=== PATIENT | female | born 1935 | race Caucasian/White ===

== ENCOUNTER 2018-04-08 09:56 | Outpatient (CLI) | payer MEDICARE | END 2018-04-08 09:57 | disposition home or self-care (01) | LOC: BICMAMMO 09:56 | PROVIDERS: ATTEND Internal Medicine Hematology & Oncology | DX: M85.80 Other specified disorders of bone density and structure, unspecified site (principal); C50.919 Malignant neoplasm of unspecified site of unspecified female breast | CPT/HCPCS: 77080 ==

== ENCOUNTER 2019-07-01 12:29 | Outpatient (CLI) | payer MEDICARE, BC ==
--- NOTE | 2019-07-01 13:47 | BD ---
EXAM: DEXA bone density examination HISTORY: 83-year-old postmenopausal female for screening COMPARISON: None FINDINGS: Left femoral neck--bone mineral density0.610; T score -2.2 Total proximal left femur--bone mineral density 0.815; T score -1.0 Right femoral neck--bone mineral density0.609; T score -2.2 Total proximal right femur--bone mineral density 0.885; T score -0.5 IMPRESSION: Osteopenia
== END 2019-07-01 12:30 | disposition home or self-care (01) ==
LOC: BICMAMMO 12:29
PROVIDERS: ATTEND Internal Medicine Hematology & Oncology
DX: M85.89 Other specified disorders of bone density and structure, multiple sites (principal); C50.919 Malignant neoplasm of unspecified site of unspecified female breast
CPT/HCPCS: 77080

== ENCOUNTER 2021-08-10 14:40 | Outpatient (CLI) | payer MEDICARE | END 2021-08-10 14:41 | disposition home or self-care (01) | LOC: BICMAMMO 14:40 | PROVIDERS: ATTEND Internal Medicine Hematology & Oncology | DX: M85.851 Other specified disorders of bone density and structure, right thigh (principal); M85.852 Other specified disorders of bone density and structure, left thigh | CPT/HCPCS: 77080 ==

== ENCOUNTER 2023-08-30 11:09 | Inpatient (IN) | payer MEDICARE ==
[2023-08-30 11:31] LABS: #Basophils 0.1 thou/uL (0.0-0.2); #Eosinphils 0.2 thou/uL (0.0-0.7); #Monocytes 1.3 thou/uL (0.11-0.59); #Neutrophils 12.3 thou/uL (1.40-6.50); %Basophils 0.5 % (0.0-1.0); %Eosinophils 1.2 % (0.0-10.0); %Lymphocytes 14.7 % (21.0-51.0); %Monocytes 7.9 % (0.0-10.0); %Neutrophils 75.1 % (42.0-75.0); Hematocrit 37.2 % (36.0-47.0); Hemoglobin 11.3 g/dL (12.0-16.0); Mean Corpuscular HGB CONC 30.4 g/dL (32.0-36.0); Mean Corpuscular Hemoglobin 27.4 pg (27.0-31.0); Mean Corpuscular Volume 90.1 fl (78.0-98.0); Mean Platelet Volume 9.5 fL (7.4-10.4); Platelet Count 389 10x3/uL (130-400); RBC Distribution Width 15.4 % (11.5-14.5); Red Blood Cell (RBC) Count 4.13 mill/uL (4.20-5.40); White Blood Cell (WBC) Count 16.3 10x3/uL (4.8-10.8)
[2023-08-30 11:54] LABS: ALT (SGPT) 7 U/L (8-55); AST (SGOT) 12 U/L (5-34); Albumin 3.9 g/dL (3.4-4.8); Alkaline Phosphatase 70 U/L (40-110); Anion Gap 17 mmol/L (10-20); BUN (Urea Nitrogen) 27 mg/dL (9.8-20.1); Bilirubin, Total 0.2 mg/dL (0.2-1.2); Calc. Creatinine Clearance 0 mL/min (70-130); Calcium 8.6 mg/dL (7.8-10.44); Carbon Dioxide 16 mmol/L (23-31); Chloride 105 mmol/L (98-107); Estimated GFR 14; Globulin 2.5 g/dL (2.4-3.5); Glucose 95 mg/dL (83-110); Lipase 49 U/L (8-78); Potassium 3.8 mmol/L (3.5-5.1); Protein, Total 6.4 g/dL (5.8-8.1); Sodium 134 mmol/L (136-145)
[2023-08-30 12:23] LABS: Bacteria/HPF 2+ HPF (None Seen); Bilirubin Negative (Negative); Blood, Urine Negative (Negative); CAUTI Indications for Culture Alt mental st,lethar; Clarity Clear (Clear); Glucose, Urine (Dipstick) Normal (Negative); Ketone, Urine Negative (Negative); Leukocyte 25 Leu/uL (Negative); Nitrite Negative (Negative); Protein, Urine (Dipstick) 50 mg/dL (Neg-Trace); RBC/HPF 0-3 HPF (0-3); Specific Gravity, Urine 1.019 (1.002-1.036); Squamous Epithelial None Seen HPF (0-3); Urobilinogen Normal mg/dL (Less than 2); WBC/HPF 0-3 HPF (0-3); pH, Urine 5.5 (5.0-9.0)
[2023-08-30 12:25] LABS: Amphetamine Not Detected (NotDetected); Barbiturates Screen Not Detected (NotDetected); Benzodiazepine Screen Not Detected (NotDetected); Cocaine Metabolite Screen Not Detected (NotDetected); Methadone Not Detected (NotDetected); Methamphetamine Not Detected (NotDetected); Opiate Screen Detected (NotDetected); Oxycodone Screen Not Detected (NotDetected); Phencyclidine (PCP) Not Detected (NotDetected); THC/Cannabinoid Screen Not Detected (NotDetected); Tricyclic Screen Not Detected (NotDetected); Urine Culture Reflex No No
[2023-08-30] MEDS ORDERED: Acetaminophen 650 MG Suppository ONE (12:35)
[2023-08-30] MEDS ORDERED: Cefepime 2 GM VIAL ONE (12:49)
[2023-08-30] MEDS ORDERED: Sodium Chloride 0.9% 100 ML ONE (12:49)
[2023-08-30 12:51] LABS: Acetaminophen Less than 10 mcg/mL (10.0-30.0); Alcohol Less than 10.0 mg/dL (Less than 10); Magnesium 1.8 mg/dL (1.6-2.6); Salicylate Less than 8.0 mg/dL (15.0-30.0)
[2023-08-30 12:55] LABS: PTT 23.4 sec (22.9-36.1)
[2023-08-30 12:55] LABS: Troponin I 0.028 ng/mL (< 0.028)
[2023-08-30 12:56] LABS: INR-International Normal Ratio 1.7; Prothrombin Time 20.8 sec (12.0-14.7)
[2023-08-30] MEDS ORDERED: Vancomycin (BATCH) 2 GM in Premix 1 BAG IVPB SCH (13:30)
[2023-08-30] MEDS ORDERED: Vancomycin Dose by Levels Sliding Scale (Wt 71-99) FS SCH (14:00)
[2023-08-30] MEDS ORDERED: Dextrose 5% in Water 1,000 ML IV PRN (15:01)
[2023-08-30] MEDS ORDERED: Ondansetron PF 4 MG/2 ML Vial IVP PRN (15:01)
[2023-08-30] MEDS ORDERED: HumaLOG 300 UNITS/3 ML VIAL SC PRN (15:01)
[2023-08-30] MEDS ORDERED: Acetaminophen 650 MG Suppository PR PRN (15:01)
[2023-08-30] MEDS ORDERED: Glucagon 1 MG/ML KIT IM PRN (15:01)
[2023-08-30] MEDS ORDERED: Dextrose 50% Abboject 50 ML SYRINGE SLOW IVP PRN (15:01)
[2023-08-30] MEDS ORDERED: hydrALAZINE 20 MG/ML VIAL SLOW IVP PRN (15:04)
[2023-08-30 15:11] LABS: Actual Bicarbonate (HCO3a) 19.2 mEq/L (22-28); Analyzer IN Cardio ER; Base Excess (BEa) -7.1 mEq/L (-2.0 to +3.0); CO2 Tension 41.9 mmHg (35.0-45.0); Calcium, Ionized (arterial) 1.12 mmol/L (1.12-1.30); Carboxyhemoglobin (COHb) 1.3 gm% (0.0-3.0); Hematocrit-ABG 31 % (36.0-47.0); Hemoglobin (Hb) 10.4 g/dL (12.0-16.0); Potassium - ABG Lab 4.01 mmol/L (3.70-5.30); pH, Arterial 7.279 (7.35-7.45)
[2023-08-30 15:15] LABS: ALV-art Gradient 36.355 mmHg (0-20); Puncture Site RBA
[2023-08-30 15:16] LABS: Lactic Acid 2.5 mmol/L (0.5-2.2)
[2023-08-30 15:19] LABS: Troponin I 0.067 ng/mL (< 0.028)
[2023-08-30] MEDS ORDERED: Sodium Chloride 0.9% 500 ML IV SCH (15:30)
[2023-08-30] MEDS ORDERED: Aspirin 300 MG Suppository PR SCH (15:45)
[2023-08-30 17:25] VITALS: BMI 32.5
[2023-08-30 17:35] LABS: SARS-CoV-2 NAA Rapid Test Not Detected (NotDetected)
[2023-08-30 17:40] LABS: Troponin I 0.133 ng/mL (< 0.028)
[2023-08-30] MEDS ORDERED: FLU VACC QS2023(65UP)/MF59C/PF 60 MCG/0.5 ML SYRINGE IM ONE (17:45)
[2023-08-30] MEDS: Sodium Bicarbonate 150 MEQ in Dextrose 5% in Water 1,000 ML IV SCH (20:44)
[2023-08-30] MEDS: Heparin 5,000 UNITS/ML VIAL SC SCH (20:49)
[2023-08-31 04:58] LABS: Anion Gap 17 mmol/L (10-20); BUN (Urea Nitrogen) 27 mg/dL (9.8-20.1); Calc. Creatinine Clearance 16 mL/min (70-130); Calcium 8.4 mg/dL (7.8-10.44); Carbon Dioxide 19 mmol/L (23-31); Cardiac Risk 2.9 (Less than 4.5); Chloride 105 mmol/L (98-107); Cholesterol 79 mg/dl (< 200 Desired); Estimated GFR 15; Glucose 128 mg/dL (83-110); HDL Cholesterol 27 mg/dL (>60 Neg Risk); LDL Cholesterol, Calculated 14 mg/dL; Potassium 3.8 mmol/L (3.5-5.1); Sodium 137 mmol/L (136-145); Triglycerides 189 mg/dL (Less than 150)
[2023-08-31 07:37] LABS: #Basophils 0.1 thou/uL (0.0-0.2); #Monocytes 0.8 thou/uL (0.11-0.59); #Neutrophils 8.8 thou/uL (1.40-6.50); %Basophils 0.6 % (0.0-1.0); %Eosinophils 7.8 % (0.0-10.0); %Lymphocytes 14.2 % (21.0-51.0); %Monocytes 6.5 % (0.0-10.0); %Neutrophils 70.5 % (42.0-75.0); Hematocrit 36.9 % (36.0-47.0); Hemoglobin 11.5 g/dL (12.0-16.0); Mean Corpuscular HGB CONC 31.2 g/dL (32.0-36.0); Mean Corpuscular Hemoglobin 27.2 pg (27.0-31.0); Platelet Count 371 10x3/uL (130-400); RBC Distribution Width 15.3 % (11.5-14.5); Red Blood Cell (RBC) Count 4.23 mill/uL (4.20-5.40); White Blood Cell (WBC) Count 12.4 10x3/uL (4.8-10.8)
[2023-08-31 07:49] LABS: Mean Corpuscular Volume 87.2 fl (78.0-98.0)
[2023-08-31] MEDS: Sodium Bicarbonate 150 MEQ in Dextrose 5% in Water 1,000 ML IV SCH ×3 (08:45→19:49)
[2023-08-31] MEDS: Famotidine/PF 20 mg/2ml Vial SLOW IVP SCH (08:52)
[2023-08-31] MEDS: Heparin 5,000 UNITS/ML VIAL SC SCH ×3 (08:53→20:46)
[2023-08-31] MEDS: Aspirin 300 MG Suppository PR SCH (08:53)
[2023-08-31] MEDS: Cefepime 1 GM in Sodium Chloride 0.9% 100 ML IVPB SCH (13:21)
[2023-08-31 15:16] LABS: Vancomycin, Random 28.6 ug/mL (See Comment)
[2023-08-31] MEDS: HumaLOG 300 UNITS/3 ML VIAL SC PRN (17:10)
[2023-09-01] MEDS ORDERED: cloNIDine 0.1 MG TAB PO SCH (04:45)
[2023-09-01 05:06] LABS: #Basophils 0.1 thou/uL (0.0-0.2); #Monocytes 1.1 thou/uL (0.11-0.59); #Neutrophils 7.2 thou/uL (1.40-6.50); %Basophils 0.8 % (0.0-1.0); %Eosinophils 8.9 % (0.0-10.0); %Lymphocytes 18.7 % (21.0-51.0); %Monocytes 9.7 % (0.0-10.0); %Neutrophils 61.6 % (42.0-75.0); Hematocrit 34.4 % (36.0-47.0); Hemoglobin 10.9 g/dL (12.0-16.0); Mean Corpuscular HGB CONC 31.7 g/dL (32.0-36.0); Mean Corpuscular Hemoglobin 26.3 pg (27.0-31.0); Mean Platelet Volume 9.7 fL (7.4-10.4); Platelet Count 379 10x3/uL (130-400); RBC Distribution Width 15.1 % (11.5-14.5); Red Blood Cell (RBC) Count 4.15 mill/uL (4.20-5.40); White Blood Cell (WBC) Count 11.6 10x3/uL (4.8-10.8)
[2023-09-01 05:28] LABS: Mean Corpuscular Volume 82.9 fl (78.0-98.0)
[2023-09-01 05:30] LABS: Anion Gap 17 mmol/L (10-20); BUN (Urea Nitrogen) 19 mg/dL (9.8-20.1); Calc. Creatinine Clearance 23 mL/min (70-130); Calcium 8.8 mg/dL (7.8-10.44); Carbon Dioxide 34 mmol/L (23-31); Chloride 95 mmol/L (98-107); Estimated GFR 22; Glucose 117 mg/dL (83-110); Potassium 2.9 mmol/L (3.5-5.1); Sodium 143 mmol/L (136-145)
[2023-09-01] MEDS ORDERED: Potassium Chloride 20 MEQ in Premix 1 BAG IVPB SCH (08:57)
[2023-09-01] MEDS ORDERED: Potassium Chloride 20 MEQ TAB PO SCH (08:57)
[2023-09-01] MEDS ORDERED: Amlodipine 10 MG TAB PO SCH (09:00)
[2023-09-01] MEDS ORDERED: Metoprolol Tartrate 25 MG TAB PO SCH (09:15)
[2023-09-01] MEDS: Heparin 5,000 UNITS/ML VIAL SC SCH ×3 (09:42→21:28)
[2023-09-01 10:09] LABS: Albumin 3.8 g/dL (3.4-4.8); CK (CPK) 62 U/L (29-168); Phosphorus 2.7 mg/dL (2.3-4.7)
[2023-09-01 10:10] LABS: Magnesium 1.5 mg/dL (1.6-2.6)
[2023-09-01] MEDS ORDERED: Magnesium 2 GM/50 ML(in water) 2 GM in Premix 1 BAG IVPB SCH (11:00)
[2023-09-01] MEDS: Famotidine/PF 20 mg/2ml Vial SLOW IVP SCH (11:32)
[2023-09-01] MEDS: Amlodipine 5 MG TAB PO SCH (11:32)
[2023-09-01] MEDS: Aspirin 300 MG Suppository PR SCH (11:32)
[2023-09-01] MEDS: Sodium Chloride 0.9% 1,000 ML IV SCH ×3 (11:33→21:27)
[2023-09-01] MEDS: Cefepime 1 GM in Sodium Chloride 0.9% 100 ML IVPB SCH (15:57)
[2023-09-01] MEDS: Sodium Bicarbonate 150 MEQ in Dextrose 5% in Water 1,000 ML IV SCH (17:48)
[2023-09-01 20:37] LABS: Anion Gap 18 mmol/L (10-20); BUN (Urea Nitrogen) 18 mg/dL (9.8-20.1); Calc. Creatinine Clearance 24 mL/min (70-130); Calcium 9.1 mg/dL (7.8-10.44); Carbon Dioxide 28 mmol/L (23-31); Chloride 96 mmol/L (98-107); Estimated GFR 23; Glucose 165 mg/dL (83-110); Potassium 3.8 mmol/L (3.5-5.1); Sodium 138 mmol/L (136-145)
[2023-09-01] MEDS: Metoprolol Tartrate 25 MG TAB PO SCH (21:28)
[2023-09-02] MEDS: Sodium Chloride 0.9% 1,000 ML IV SCH ×3 (05:39→23:00)
[2023-09-02 07:23] LABS: Albumin 3.4 g/dL (3.4-4.8); Anion Gap 15 mmol/L (10-20); BUN (Urea Nitrogen) 15 mg/dL (9.8-20.1); BUN/Creatinine Ratio 9.26; Calc. Creatinine Clearance 30 mL/min (70-130); Calcium 8.4 mg/dL (7.8-10.44); Carbon Dioxide 27 mmol/L (23-31); Chloride 100 mmol/L (98-107); Estimated GFR 31; Glucose 115 mg/dL (83-110); Magnesium 1.3 mg/dL (1.6-2.6); Phosphorus 2.6 mg/dL (2.3-4.7); Potassium 3.1 mmol/L (3.5-5.1); Sodium 139 mmol/L (136-145)
[2023-09-02] MEDS: Famotidine/PF 20 mg/2ml Vial SLOW IVP SCH (08:31)
[2023-09-02] MEDS: Heparin 5,000 UNITS/ML VIAL SC SCH ×3 (08:31→20:36)
[2023-09-02] MEDS: Amlodipine 5 MG TAB PO SCH (08:31)
[2023-09-02] MEDS: Metoprolol Tartrate 25 MG TAB PO SCH ×2 (08:32→20:35)
[2023-09-02] MEDS: Aspirin 300 MG Suppository PR SCH (08:37)
[2023-09-02] MEDS ORDERED: Magnesium Sulfate In Water 4 GM in Premix 1 BAG IVPB SCH (12:30)
[2023-09-02] MEDS ORDERED: Amlodipine 5 MG TAB PO SCH (12:30)
[2023-09-02] MEDS ORDERED: Potassium Chloride 20 MEQ TAB PO SCH ×2 (12:30→15:00)
[2023-09-02] MEDS ORDERED: Polymyxin B Sulf/Trimethoprim 10 ML OPHTH DROPS R EYE SCH (13:00)
[2023-09-02] MEDS: cefTRIAXone\\ROCEPHIN 1 GM in Sodium Chloride 0.9% 100 ML IVPB SCH (13:06)
[2023-09-02] MEDS ORDERED: Cortisporin 1% Opth Oint 3.5 GM TUBE EA EYE SCH (16:00)
[2023-09-02] MEDS: Cortisporin 1% Opth Oint 3.5 GM TUBE R EYE SCH ×3 (16:05→23:45)
[2023-09-02] MEDS: metFORMIN 500 MG TAB PO SCH (16:05)
[2023-09-02] MEDS ORDERED: Lisinopril 2.5 MG TAB PO SCH (21:00)
[2023-09-03] MEDS: Cortisporin 1% Opth Oint 3.5 GM TUBE R EYE SCH ×6 (04:00→23:18)
[2023-09-03] MEDS ORDERED: Acetaminophen 325 MG TAB PO PRN (05:29)
[2023-09-03] MEDS ORDERED: Amlodipine 10 MG TAB PO SCH ×2 (05:45→09:00)
[2023-09-03] MEDS: Levothyroxine Sodium 25 MCG TAB PO SCH (06:05)
[2023-09-03] MEDS ORDERED: NIFEdipine XL 60 MG ER.TAB PO SCH ×2 (07:00→09:00)
[2023-09-03 07:51] LABS: #Basophils 0.1 thou/uL (0.0-0.2); #Eosinphils 0.4 thou/uL (0.0-0.7); #Monocytes 1.1 thou/uL (0.11-0.59); #Neutrophils 6.1 thou/uL (1.40-6.50); %Eosinophils 3.7 % (0.0-10.0); %Lymphocytes 22.2 % (21.0-51.0); %Monocytes 10.7 % (0.0-10.0); Hematocrit 35.3 % (36.0-47.0); Hemoglobin 11.1 g/dL (12.0-16.0); Mean Corpuscular HGB CONC 31.4 g/dL (32.0-36.0); Mean Corpuscular Hemoglobin 26.9 pg (27.0-31.0); Mean Corpuscular Volume 85.7 fl (78.0-98.0); Mean Platelet Volume 9.7 fL (7.4-10.4); Platelet Count 354 10x3/uL (130-400); RBC Distribution Width 15.1 % (11.5-14.5); Red Blood Cell (RBC) Count 4.12 mill/uL (4.20-5.40); White Blood Cell (WBC) Count 9.8 10x3/uL (4.8-10.8)
[2023-09-03] MEDS: Ferrous Sulfate 325 MG TAB PO SCH (08:13)
[2023-09-03] MEDS: metFORMIN 500 MG TAB PO SCH ×2 (08:13→17:33)
[2023-09-03] MEDS: Aspirin Chewable 81 MG TAB PO SCH (08:14)
[2023-09-03] MEDS: Atorvastatin Calcium 40 MG TAB PO SCH (08:14)
[2023-09-03] MEDS: Heparin 5,000 UNITS/ML VIAL SC SCH ×3 (08:14→20:30)
[2023-09-03] MEDS: Metoprolol Tartrate 25 MG TAB PO SCH ×2 (08:14→20:30)
[2023-09-03 08:15] LABS: Anion Gap 15 mmol/L (10-20); BUN (Urea Nitrogen) 10 mg/dL (9.8-20.1); Calc. Creatinine Clearance 37 mL/min (70-130); Calcium 8.9 mg/dL (7.8-10.44); Carbon Dioxide 21 mmol/L (23-31); Chloride 106 mmol/L (98-107); Estimated GFR 39; Glucose 141 mg/dL (83-110); Potassium 3.9 mmol/L (3.5-5.1); Sodium 138 mmol/L (136-145)
[2023-09-03] MEDS: Sodium Chloride 0.9% 1,000 ML IV SCH (08:26)
[2023-09-03] MEDS ORDERED: Famotidine 20 MG TAB PO SCH (09:00)
[2023-09-03] MEDS ORDERED: hydrALAZINE 25 MG TAB PO SCH ×2 (09:00→17:00)
[2023-09-03] MEDS: Lactated Ringer's 1,000 ML IV SCH ×2 (10:10→17:27)
[2023-09-03] MEDS: Aspirin 300 MG Suppository PR SCH (10:16)
[2023-09-03] MEDS: cefTRIAXone\\ROCEPHIN 1 GM in Sodium Chloride 0.9% 100 ML IVPB SCH (13:18)
[2023-09-03] MEDS: hydrALAZINE 25 MG TAB PO SCH (20:30)
[2023-09-04] MEDS: Lactated Ringer's 1,000 ML IV SCH (03:32)
[2023-09-04] MEDS: Cortisporin 1% Opth Oint 3.5 GM TUBE R EYE SCH ×6 (03:33→23:18)
[2023-09-04] MEDS: Levothyroxine Sodium 25 MCG TAB PO SCH (05:48)
[2023-09-04 06:50] LABS: Anion Gap 12 mmol/L (10-20); BUN (Urea Nitrogen) 9 mg/dL (9.8-20.1); Calc. Creatinine Clearance 42 mL/min (70-130); Calcium 9.5 mg/dL (7.8-10.44); Carbon Dioxide 24 mmol/L (23-31); Chloride 103 mmol/L (98-107); Estimated GFR 46; Glucose 141 mg/dL (83-110); Potassium 3.5 mmol/L (3.5-5.1); Sodium 135 mmol/L (136-145)
[2023-09-04] MEDS ORDERED: NIFEdipine XL 60 MG ER.TAB PO SCH (09:00)
[2023-09-04] MEDS ORDERED: Amlodipine 10 MG TAB PO SCH (09:00)
[2023-09-04] MEDS: Aspirin Chewable 81 MG TAB PO SCH (09:24)
[2023-09-04] MEDS: NIFEdipine XL 60 MG ER.TAB PO SCH ×2 (09:24→21:25)
[2023-09-04] MEDS: Atorvastatin Calcium 40 MG TAB PO SCH (09:24)
[2023-09-04] MEDS: metFORMIN 500 MG TAB PO SCH ×2 (09:25→16:22)
[2023-09-04] MEDS: Metoprolol Tartrate 25 MG TAB PO SCH ×2 (09:25→21:26)
[2023-09-04] MEDS: hydrALAZINE 25 MG TAB PO SCH ×3 (09:25→21:26)
[2023-09-04] MEDS: Aspirin 300 MG Suppository PR SCH (09:26)
[2023-09-04] MEDS: Heparin 5,000 UNITS/ML VIAL SC SCH ×3 (09:26→21:25)
[2023-09-04] MEDS: Ferrous Sulfate 325 MG TAB PO SCH (09:26)
[2023-09-04] MEDS: cefTRIAXone\\ROCEPHIN 1 GM in Sodium Chloride 0.9% 100 ML IVPB SCH (12:18)
[2023-09-04] MEDS ORDERED: Melatonin 3 MG TAB PO PRN (14:32)
[2023-09-04] MEDS ORDERED: traZODone HCl 50 MG TAB PO SCH (21:00)
[2023-09-04] MEDS: Icosapent Ethyl 1 GM CAPSULE PO SCH (21:26)
[2023-09-05] MEDS: Levothyroxine Sodium 25 MCG TAB PO SCH (06:09)
[2023-09-05] MEDS: Cortisporin 1% Opth Oint 3.5 GM TUBE R EYE SCH ×4 (06:13→15:30)
[2023-09-05 06:55] LABS: Anion Gap 19 mmol/L (10-20); BUN (Urea Nitrogen) 10 mg/dL (9.8-20.1); Calc. Creatinine Clearance 38 mL/min (70-130); Calcium 9.3 mg/dL (7.8-10.44); Carbon Dioxide 17 mmol/L (23-31); Chloride 101 mmol/L (98-107); Estimated GFR 41; Glucose 135 mg/dL (83-110); Magnesium 1.3 mg/dL (1.6-2.6); Potassium 3.9 mmol/L (3.5-5.1); Sodium 133 mmol/L (136-145)
[2023-09-05 07:08] LABS: Phosphorus 2.6 mg/dL (2.3-4.7)
[2023-09-05] MEDS ORDERED: Magnesium Sulfate In Water 4 GM in Premix 1 BAG IVPB SCH (07:15)
[2023-09-05] MEDS: Atorvastatin Calcium 40 MG TAB PO SCH (08:59)
[2023-09-05] MEDS: hydrALAZINE 25 MG TAB PO SCH ×2 (08:59→15:06)
[2023-09-05] MEDS: NIFEdipine XL 60 MG ER.TAB PO SCH (08:59)
[2023-09-05] MEDS: metFORMIN 500 MG TAB PO SCH (08:59)
[2023-09-05] MEDS: Aspirin Chewable 81 MG TAB PO SCH (08:59)
[2023-09-05] MEDS: Sodium Bicarbonate Tab 325 MG TAB PO SCH ×2 (08:59→15:08)
[2023-09-05] MEDS: Icosapent Ethyl 1 GM CAPSULE PO SCH (08:59)
[2023-09-05] MEDS ORDERED: Anastrozole 1 MG TAB PO SCH (09:00)
[2023-09-05] MEDS: Heparin 5,000 UNITS/ML VIAL SC SCH ×2 (09:00→15:08)
[2023-09-05] MEDS: Metoprolol Tartrate 25 MG TAB PO SCH (09:00)
[2023-09-05] MEDS ORDERED: Escitalopram Oxalate 10 mg Tablet PO SCH (09:00)
[2023-09-05] MEDS: Ferrous Sulfate 325 MG TAB PO SCH (09:00)
[2023-09-05] MEDS: HumaLOG 300 UNITS/3 ML VIAL SC PRN (12:25)
[2023-09-05 15:08] VITALS: BP 119/67
[2023-09-05 15:13] VITALS: TEMP 98.5
== END 2023-09-05 17:13 | disposition home health service (06) | DRG 689 ==
LOC: ERS 11:09 → 2NO 14:31 → T4-A 09-01 18:59
PROVIDERS: ADMIT Family Medicine; ATTEND Hospitalist
PROC: 0T9B70Z Drainage of Bladder with Drainage Device, Via Natural or Artificial Opening (ICD-10-PCS; principal; 2023-08-30)
PROC: 3E03329 Introduction of Other Anti-infective into Peripheral Vein, Percutaneous Approach (ICD-10-PCS; 2023-08-30)
PROC: 4A00X4Z Measurement of Central Nervous Electrical Activity, External Approach (ICD-10-PCS; 2023-08-31)
PROC: 4A00X4Z Measurement of Central Nervous Electrical Activity, External Approach (ICD-10-PCS; 2023-09-01)
DX: N39.0 Urinary tract infection, site not specified (principal); G93.41 Metabolic encephalopathy; N17.9 Acute kidney failure, unspecified; I13.0 Hypertensive heart and chronic kidney disease with heart failure and stage 1 through stage 4 chronic kidney disease, or unspecified chronic kidney disease; D68.9 Coagulation defect, unspecified; I50.32 Chronic diastolic (congestive) heart failure; E87.1 Hypo-osmolality and hyponatremia; E87.20 Acidosis, unspecified; E87.3 Alkalosis; Z88.8 Allergy status to other drugs, medicaments and biological substances; Z91.040 Latex allergy status; Z79.899 Other long term (current) drug therapy; Z79.82 Long term (current) use of aspirin; Z79.84 Long term (current) use of oral hypoglycemic drugs; Z98.890 Other specified postprocedural states; Z95.5 Presence of coronary angioplasty implant and graft; I25.10 Atherosclerotic heart disease of native coronary artery without angina pectoris; E11.22 Type 2 diabetes mellitus with diabetic chronic kidney disease; K21.9 Gastro-esophageal reflux disease without esophagitis; N18.30 Chronic kidney disease, stage 3 unspecified; Z90.710 Acquired absence of both cervix and uterus; Z83.3 Family history of diabetes mellitus; Z82.49 Family history of ischemic heart disease and other diseases of the circulatory system; D63.1 Anemia in chronic kidney disease; E03.9 Hypothyroidism, unspecified; Z79.01 Long term (current) use of anticoagulants; E86.0 Dehydration; E83.42 Hypomagnesemia
CPT/HCPCS: 36415; 36416; 36600; 51701; 70450; 71045; 76770; 80048; 80053; 80061; 80069; 80202; 80306; 80307; 81001; 82040; 82140; 82550; 82805; 83605; 83690; 83735; 83880; 84100; 84443; 84484; 85025; 85610; 85730; 87040; 93005; 93306; 93880; 95711; 95816; 95819; 96365; 96366; 96367; J0692; J0696; J1644; J1815; J3370; J3475; J3490; J7050; J7070; J7120; S0028